=== PATIENT | female | born 1960 | race Two or more races ===

== ENCOUNTER 2020-05-13 10:11 | Emergency (ER) | payer OTHER ==
[~2020-05-13] VITALS: Ht 154.9 cm; Wt 66.2 kg
[2020-05-13] MEDS ORDERED: NEXIUM 24HR20 M1 (10:30)
[2020-05-13] MEDS ORDERED: BENTYL10 MG/1 ML (10:30)
== END 2020-05-13 18:32 | disposition home or self-care (01) ==
LOC: ER 10:11
DX: K80.80 Other cholelithiasis without obstruction (principal); L04.8 Acute lymphadenitis of other sites; R10.32 Left lower quadrant pain; Z03.818 Encounter for observation for suspected exposure to other biological agents ruled out

== ENCOUNTER → 2021-01-23 | Outpatient (CLI) | payer OTHER ==
[~2021-01-23] MED LIST: BENTYL10 MG/1 ML; NEXIUM 24HR20 M1
== END | disposition home or self-care (01) ==
LOC: PPH VACUNA 08:00
PROVIDERS: ATTEND Emergency Medicine Pediatric Emergency Medicine
DX: Z23 Encounter for immunization (principal)